=== PATIENT | male | born 1955 | race Caucasian/White ===

== ENCOUNTER 2020-12-23 13:18 | Emergency (ER) | payer BC, SELFPAY ==
[2020-12-23 13:28] VITALS: BP 144/82; PULSE 87; RESP 16; TEMP 37.4; O2SAT 98
[2020-12-23 13:43] VITALS: BP 144/82; PULSE 87; RESP 16; TEMP 37.4; O2SAT 98
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
== END 2020-12-23 15:17 | disposition home or self-care (01) ==
PROVIDERS: Emergency Provider Nurse Practitioner Family
DX: J32.9 Chronic sinusitis, unspecified (principal); E11.9 Type 2 diabetes mellitus without complications
CPT/HCPCS: 99213; G0463